=== PATIENT | male | born 1955 | race Caucasian/White ===

== ENCOUNTER → 2016-11-30 | Outpatient (CLI) | payer OTHER ==
[~2016-11-30] MED LIST: ALBUAER2 INH; CENTTAB41; DXY100 PO
[2016-11-30 18:23] LABS: ALT/SGPT 26 U/L (12-78); AST/SGOT 10 U/L (15-37); BLOOD UREA NITROGEN 15 mg/dl (7-18); BUN/CREATININE RATIO 15.2 (10-20); CALCIUM 9.1 mg/dl (8.5-10.1); CARBON DIOXIDE 30 mmol/L (21-32); CHLORIDE 106 mmol/L (98-107); GLUCOSE 94 mg/dl (70-99); POTASSIUM 4.2 mmol/L (3.5-5.1); SODIUM 142 mmol/L (136-145); TRIGLYCERIDES 59 mg/dl (0-150); VERY LOW DENSITY LIPOPROT CALC 12 mg/dl
[2016-11-30 18:26] LABS: ALB/GLOB RATIO 1.3 (0.9-2); ALKALINE PHOSPHATASE 54 U/L (45-117); CHOLESTEROL 198 mg/dl (0-200); CHOLESTEROL/HDL RATIO 3.1; HDL CHOLESTEROL 64 mg/dl; LDL CHOLESTEROL CALCULATED 122 mg/dl
[2016-12-01 06:10] LABS: ESTIMATED AVERAGE GLUCOSE 117 mg/dl; HA1C FLAG Normal (Normal)
== END | disposition home or self-care (01) ==
LOC: C.LABBC 09:51
PROVIDERS: ATTEND Internal Medicine
DX: E78.5 Hyperlipidemia, unspecified (principal)

== ENCOUNTER → 2017-06-06 | Outpatient (CLI) | payer OTHER ==
[2017-06-06 11:31] LABS: ESTIMATED AVERAGE GLUCOSE 123 mg/dl; HA1C FLAG Normal (Normal)
[2017-06-06 11:37] LABS: LYME DISEASE AB IGG NEG (NEG); LYME DISEASE AB IGM NEG (NEG)
[2017-06-06 11:50] LABS: CHOLESTEROL/HDL RATIO 4.1
== END | disposition home or self-care (01) ==
LOC: C.LABBC 08:26
PROVIDERS: ATTEND Internal Medicine
DX: Z00.00 Encounter for general adult medical examination without abnormal findings (principal); E78.5 Hyperlipidemia, unspecified

== ENCOUNTER → 2017-08-02 | Outpatient (CLI) | payer OTHER | END | disposition home or self-care (01) | LOC: C.LABBC 13:35 | PROVIDERS: ATTEND Urology | DX: N40.0 Benign prostatic hyperplasia without lower urinary tract symptoms (principal) ==

== ENCOUNTER → 2017-12-27 | Outpatient (CLI) | payer OTHER ==
[2017-12-27 11:01] LABS: BASO ABS # 0.04 K/uL (0-0.2); EOS % 4.3 %; EOS ABS # 0.18 K/uL (0-0.5); HEMATOCRIT 43.3 % (42-52); HEMOGLOBIN 15.2 g/dL (14.0-18.0); LYMPH % 38.3 %; LYMPH ABS # 1.61 K/uL (1.2-3.4); MEAN CELL VOLUME 90.2 fL (80-100); MEAN CORPUSCULAR HEMOGLOBIN 31.7 pg (25-34); MEAN CORPUSCULAR HGB CONC 35.1 g/dl (32-36); MONO % 7.1 %; NEUT % 49.3 %; NEUT ABS # 2.07 K/uL (1.4-6.5); PLATELET COUNT 317 K/uL (130-400); RED CELL DISTRIBUTION WIDTH CV 13.2 % (11.5-14.5); RED CELL DISTRIBUTION WIDTH SD 43.4 fL (36.4-46.3)
[2017-12-27 11:14] LABS: ALBUMIN 4.2 gm/dl (3.4-5.0); ALT/SGPT 29 U/L (12-78); AST/SGOT 13 U/L (15-37); BLOOD UREA NITROGEN 17 mg/dl (7-18); CALCIUM 8.9 mg/dl (8.5-10.1); CARBON DIOXIDE 30 mmol/L (21-32); CHOLESTEROL 263 mg/dl (0-200); CREATININE 1.13 mg/dl (0.60-1.40); GLUCOSE 93 mg/dl (70-99); POTASSIUM 4.4 mmol/L (3.5-5.1); SODIUM 138 mmol/L (136-145)
[2017-12-27 11:17] LABS: ALKALINE PHOSPHATASE 53 U/L (45-117); LDL CHOLESTEROL CALCULATED 177 mg/dl; TOTAL PROTEIN 7.5 gm/dl (6.4-8.2)
[2017-12-27 11:24] LABS: HEMOGLOBIN A1C 5.6 % (4.5-5.6)
== END | disposition home or self-care (01) ==
LOC: C.LABBC 08:55
PROVIDERS: ATTEND Internal Medicine
DX: J45.909 Unspecified asthma, uncomplicated (principal); E78.5 Hyperlipidemia, unspecified; D72.819 Decreased white blood cell count, unspecified; R03.0 Elevated blood-pressure reading, without diagnosis of hypertension; R73.9 Hyperglycemia, unspecified